=== PATIENT | female | born 1960 | race Caucasian/White ===

== ENCOUNTER → 2017-02-15 | Outpatient (CLI) | payer BC ==
--- NOTE | 2017-02-15 14:03 | DI ---
LEFT KNEE, 02/15/2017 11:30 AM: Clinical History: Left knee pain. Previous Exam: None at this facility. 4 views are submitted. The AP and tunnel projections are weight bearing views. There is no acute soft tissue, osseous, or joint abnormality. There is narrowing of the lateral compartment consistent with degenerative arthritic change. Reading: Degenerative arthritic changes of the lateral compartment.
== END ==
LOC: RAD 11:30
PROVIDERS: ATTEND Physician Assistant
DX: M25.561 Pain in right knee (principal); M17.12 Unilateral primary osteoarthritis, left knee; M70.52 Other bursitis of knee, left knee; W10.9XXA Fall (on) (from) unspecified stairs and steps, initial encounter
CPT/HCPCS: 73564